=== PATIENT | female | born 1965 | race Caucasian/White ===

== ENCOUNTER 2016-11-12 20:14 | Emergency (ER) | payer OTHER ==
--- NOTE | 2016-11-12 20:45 | ER Document Report ---
ED Medical Screen (RME) - General Chief Complaint: Dizziness, Nausea, MOYER Stated Complaint: DIZZY,NAUSEA,HEADACHE Time Seen by Provider: 11/12/16 20:43 Notes: Patient states she has had 2 days of dizziness and headaches. She also has some nausea but no vomiting. She states she has not been coughing. She states she has felt like she has had sinus congestion. TRAVEL OUTSIDE OF THE [place] IN LAST 30 DAYS: No Past Medical History Renal/ Medical History: Denies: Hx Peritoneal Dialysis Physical Exam - Vital signs Vitals: Temp Pulse Resp BP Pulse Ox 98.3 F 55 L 18 130/64 H 96 11/12/16 20:32 11/12/16 20:32 11/12/16 20:32 11/12/16 20:32 11/12/16 20:32 Course - Vital Signs Vital signs: Temp Pulse Resp BP Pulse Ox 98.3 F 55 L 18 130/64 H 96 11/12/16 20:32 11/12/16 20:32 11/12/16 20:32 11/12/16 20:32 11/12/16 20:32
[2016-11-12 21:19] LABS: ABSOLUTE BASOPHILS # (AUTO) 0.1 10^3/uL (0.0-0.2); ABSOLUTE EOSINOPHILS # (AUTO) 0.1 10^3/uL (0.0-0.6); ABSOLUTE LYMPHOCYTES (AUTO) 2.2 10^3/uL (0.5-4.7); ABSOLUTE MONOCYTES (AUTO) 0.4 10^3/uL (0.1-1.4); BASOPHILS % (AUTO) 1.1 % (0-2); EOSINOPHILS % (AUTO) 1.6 % (0-6); HEMATOCRIT 36.6 % (36.0-47.0); HEMOGLOBIN 12.4 g/dL (12.0-15.5); HGB HCT DIFFERENCE 0.6; LYMPHOCYTES % (AUTO) 27.9 % (13-45); MEAN CORPUSCULAR HEMOGLOBIN 28.9 pg (27.0-33.4); MEAN CORPUSCULAR HGB CONC 33.9 g/dL (32.0-36.0); MEAN CORPUSCULAR VOLUME 85 fl (80-97); MONOCYTES % (AUTO) 5.6 % (3-13); RED BLOOD COUNT 4.29 10^6/uL (3.72-5.28); RED CELL DISTRIBUTION WIDTH 14.4 % (11.5-14.0); SEGMENTED NEUTROPHILS % (AUTO) 63.8 % (42-78); WHITE BLOOD COUNT 7.8 10^3/uL (4.0-10.5)
[2016-11-12 21:22] LABS: APPEARANCE,URINE SLIGHTLY-CLOUDY; BILIRUBIN,URINE NEGATIVE (NEGATIVE); GLUCOSE, URINE NEGATIVE (NEGATIVE); KETONES,URINE NEGATIVE (NEGATIVE); LEUKOCYTE ESTERASE,URINE NEGATIVE (NEGATIVE); NITRITE,URINE NEGATIVE (NEGATIVE); PROTEIN,URINE NEGATIVE (NEGATIVE); URINE SPECIFIC GRAVITY 1.018; UROBILINOGEN,URINE NEGATIVE mg/dL (<2.0)
[2016-11-12] MEDS ORDERED: ONDANSETRON 4 MG TAB.RAPDIS PO ONE (21:25)
[2016-11-12] MEDS ORDERED: IBUPROFEN 600 MG TABLET PO ONE (21:25)
--- NOTE | 2016-11-12 21:36 | ER Document Report ---
ED General - General Chief Complaint: Dizziness, Nausea, MOYER Stated Complaint: DIZZY,NAUSEA,HEADACHE Time Seen by Provider: 11/12/16 20:43 Notes: 31-year-old female presents with intermittent dizziness first noticed this morning when she was getting out of bed, then again this afternoon when she turned her head in bed but not elicited when she stood up. She then had room spinning type dizziness which then progressed to nausea. It in mild. Associated with a headache which started in the back of her head. Nonpulsatile no photophobia neck stiffness or pain, which he does have pain around her nose and behind her eyes. Slight nasal drainage, no tooth pain or sinus issues. Headache was gradual onset. TRAVEL OUTSIDE OF THE [place] IN LAST 30 DAYS: No Past Medical History - General Information source: Patient - Social History Smoking Status: Unknown if Ever Smoked Family History: None Renal/ Medical History: Denies: Hx Peritoneal Dialysis Review of Systems - Review of Systems Notes: REVIEW OF SYSTEMS GEN: Denies fever, chills, weight loss ENT: D dizziness with head turning nasal discharge. EYES: Denies blurry vision, eye pain, discharge CV: Denies chest pain, palpitations, edema RESP: Denies cough, shortness of breath, wheezing GI: Denies abdominal pain, nausea, vomiting, diarrhea MSK: Denies joint pain/swelling, edema, SKIN: Denies rash, skin lesions LYMPH: Denies swollen glands/lymph nodes NEURO: Denies headache, focal weakness or numbness PSYCH: Denies depression, suicidal or homicidal ideation PHYSICAL EXAMINATION General: No acute distress, well-nourished Head: Atraumatic, normocephalic ENT: Mouth normal, oropharynx moist, no exudates or tonsillar enlargement bilateral tympanic membranes normal with good light reflex and no discharge. Eyes: Conjunctiva normal, pupils equal, lids normal Neck: No JVD, supple, no guarding CVS: Normal rate, regular rhythm, no murmurs Resp: No resp distress, equal and normal breath sounds bilaterally GI: Nondistended, soft, no tenderness to palpation, no rebound or guarding Ext: No deformities, no edema, normal range of motion in upper and lower ext Back: No CVA or midline TTP Skin: No rash, warm Lymphatic: No lymphadeopathy noted Neuro: Awake, alert. Face symmetric. GCS 15. No pronator drift. Normal construction foreman. Normal foot strength. Normal sensation in all 4 extremities. Physical Exam - Vital signs Vitals: Temp Pulse Resp BP Pulse Ox 98.3 F 55 L 18 130/64 H 96 11/12/16 20:32 11/12/16 20:32 11/12/16 20:32 11/12/16 20:32 11/12/16 20:32 Course - Re-evaluation Re-evalutation: 11/12/16 21:34 51-year-old female presents with insidious onset of dizziness on head turning now accompanied with headache and nausea but gradual onset within normal neurologic exam. This is likely sinus related. I do not think this is a subarachnoid bleed or other intra-cranial hemorrhage secondary to his gradual onset and lack of focal neurologic deficits. Ibuprofen and Zofran. Do not believe this patient requires imaging. She is very well-appearing and walks normally. 11/12/16 21:36 Discharge with recommendations for ibuprofen, given a prescription for meclizine as well as a dose here. She has a primary appointment tomorrow and will follow up thusly. I have discussed with the patient there likely diagnosis, aftercare plan, follow -up plans and my usual and customary return precautions. They verbalized understanding of this. 11/12/16 22:11 - Vital Signs Vital signs: Temp Pulse Resp BP Pulse Ox 98.3 F 55 L 18 130/64 H 96 11/12/16 20:32 11/12/16 20:32 11/12/16 20:32 11/12/16 20:32 11/12/16 20:32 - Laboratory Result Diagrams: 11/12/16 21:01 11/12/16 21:01 Laboratory results interpreted by me: 11/12/16 11/12/16 21:01 21:01 RDW 14.4 H Glucose 145 H Discharge - Discharge Clinical Impression: Vertigo Condition: Good Disposition: HOME, SELF-CARE Instructions: Antinausea Medication ([facility]), Dizziness ([facility]) Prescriptions: Meclizine HCl [Antivert 25 mg Tablet] 25 mg PO Q6 #30 tablet
[2016-11-12 21:42] LABS: ALANINE AMINOTRANSFERASE 41 U/L (9-52); ALBUMIN 4.1 g/dL (3.5-5.0); ALKALINE PHOSPHATASE 70 U/L (38-126); ANION GAP 11 (5-19); ASPARTATE AMINO TRANSFERASE 36 U/L (14-36); BILIRUBIN,DIRECT 0.2 mg/dL (0.0-0.4); BILIRUBIN,TOTAL 0.4 mg/dL (0.2-1.3); BLOOD UREA NITROGEN 9 mg/dL (7-20); CALCIUM 8.9 mg/dL (8.4-10.2); CARBON DIOXIDE 27 mmol/L (22-30); CHLORIDE 104 mmol/L (98-107); CREATININE RESULT 0.74 mg/dL (0.52-1.25); GLUCOSE 145 mg/dL (75-110); SODIUM 141.5 mmol/L (137-145); TOTAL PROTEIN 7.3 g/dL (6.3-8.2)
[2016-11-12] MEDS ORDERED: MECLIZINE HCL 25 MG TABLET PO ONE (22:00)
[2016-11-12 22:18] VITALS: BP 114/60
== END 2016-11-12 22:19 | disposition home or self-care (01) ==
LOC: ER 20:14
DX: R42 Dizziness and giddiness (principal); R11.0 Nausea; R51 Headache
CPT/HCPCS: 99284; 36415; 85025; 81025; 80053; 81001; S0119